=== PATIENT | female | born 1995 | race Caucasian/White ===

== ENCOUNTER 2021-10-11 08:33 | Inpatient (IN) | payer OTHER ==
[~2021-10-11] VITALS: Ht 149.9 cm; Wt 69.9 kg
[2021-10-23] MEDS ORDERED: VITATRUE COMBO1 EACH PO (08:42)
[2021-10-26] MEDS ORDERED: KETO10TA2 PO (10:54)
[2021-10-26] MEDS ORDERED: OXYC1TAB9 PO (10:54)
== END 2021-10-26 14:06 | disposition home or self-care (01) | DRG 785 ==
LOC: OB/GYN 10-23 08:30 → O/R 10-23 08:30 → OB/GYN 10-23 15:08
PROVIDERS: ADMIT Obstetrics & Gynecology; ATTEND Obstetrics & Gynecology
PROC: 0UB70ZZ Excision of Bilateral Fallopian Tubes, Open Approach (ICD-10-PCS; 2021-10-23)
PROC: 4A1HXCZ Monitoring of Products of Conception, Cardiac Rate, External Approach (ICD-10-PCS; 2021-10-23)
PROC: 10D00Z1 Extraction of Products of Conception, Low, Open Approach (ICD-10-PCS; principal; 2021-10-23 13:00)
DX: O34.211 Maternal care for low transverse scar from previous cesarean delivery (principal); Z3A.39 39 weeks gestation of pregnancy; Z37.0 Single live birth; Z30.2 Encounter for sterilization; Z20.822 Contact with and (suspected) exposure to COVID-19